=== PATIENT | female | born 1965 | race Caucasian/White ===

== ENCOUNTER 2019-07-09 07:56 | Inpatient (IN) ==
--- NOTE | 2019-06-12 16:11 | PAT Medication Instructions ---
Medication Instructions Date of Service June 12, 2019 Home Medications Medication Instructions Recorded metformin 500 mg tablet,extended 500 mg PO QPM #90 tab 01/14/19 release 24 hr celecoxib 200 mg capsule 200 mg PO QPM #90 cap 04/26/19 Align 4 mg PO DAILY cetirizine [Zyrtec] 10 mg PO QPM cranberry 400 mg PO DAILY escitalopram oxalate [Lexapro] 10 mg PO HS krill oil 1 cap PO DAILY multivitamin 1 tab PO DAILY triamterene-hydrochlorothiazid 1 tab PO QPM turmeric 1 cap PO Q2D betamethasone, augmented 0.05 % topical cream 1 appln TOPICAL UD PRN metformin 500 mg tablet,extended release 24 hr 500 mg PO QPM cholecalciferol (vitamin D3) 1,000 unit capsule 1,000 units PO DAILY coenzyme Q10 100 mg capsule 100 mg PO DAILY levothyroxine 100 mcg tablet 100 mcg PO QAM celecoxib 200 mg capsule 200 mg PO QPM pantoprazole [Protonix] 40 mg PO Q2D Continue as directed pantoprazole [Protonix] 40 mg PO Q2D STOP taking 2 weeks before surgery (or as soon as possible if surgery is within 2 weeks) cranberry 400 mg PO DAILY krill oil 1 cap PO DAILY turmeric 1 cap PO Q2D coenzyme Q10 100 mg capsule 100 mg PO DAILY STOP taking 24 hours before surgery betamethasone, augmented 0.05 % topical cream 1 appln TOPICAL UD PRN DO NOT take the morning of surgery Align 4 mg PO DAILY multivitamin 1 tab PO DAILY cholecalciferol (vitamin D3) 1,000 unit capsule 1,000 units PO DAILY Take morning of surgery With a small sip of water, OTHERWISE NOTHING TO EAT OR DRINK AFTER MIDNIGHT: levothyroxine 100 mcg tablet 100 mcg PO QAM Take evening before surgery cetirizine [Zyrtec] 10 mg PO QPM escitalopram oxalate [Lexapro] 10 mg PO HS triamterene-hydrochlorothiazid 1 tab PO QPM metformin 500 mg tablet,extended release 24 hr 500 mg PO QPM Other Notes If you have any questions please call us at [phone] or [phone] or [phone] or [phone]
--- NOTE | 2019-06-13 09:27 | Anesthesiology Consultation ---
Date of Service June 13, 2019 Assessment & Plan (1) Encounter for pre-operative examination: CHECK TEST AM DOS Chart Review Chart Review: Acceptable Risk for Surgery and Patient seen in Pre Admission Testing Teaching & Discussion Instructed NPO after midnight before surgery, except medications with 15 cc of water. Medication instructions provided according to the PAT guidelines. History Surgery Operation Date: 07/09/19 10:20 Proposed Procedures p Left Total Knee Arthroplasty - Babar Ulices Ibanez MD Height/Weight Height: 5 ft 4.5 in Weight: 118.2 kg Allergies Allergy/AdvReac Type Severity Reaction Status Date / Time cephalexin Allergy Unknown CHILLS/FEVE Verified 06/07/19 15:37 R/DIARRHEA shellfish derived Allergy Unknown HANDS SWELL Verified 06/07/19 15:38 sulfamethoxazole AdvReac Unknown Insomnia Verified 06/07/19 15:37 [From Bactrim] trimethoprim [From Bactrim] AdvReac Unknown Insomnia Verified 06/07/19 15:37 Medications Home Medications Medication Instructions Recorded Confirmed Last Taken Align 4 mg PO DAILY 07/26/18 06/07/19 08/07/18 cetirizine [Zyrtec] 10 mg PO QPM 07/26/18 06/07/19 08/07/18 cranberry 400 mg PO DAILY 07/26/18 06/07/19 1 Week Ago ~08/02/18 escitalopram oxalate [Lexapro] 10 mg PO HS 07/26/18 06/07/19 08/08/18 krill oil 1 cap PO DAILY 07/26/18 06/07/19 1 Week Ago ~08/02/18 multivitamin 1 tab PO DAILY 07/26/18 06/07/19 08/07/18 triamterene-hydrochlorothiazid 1 tab PO QPM 07/26/18 06/07/19 08/08/18 turmeric 1 cap PO Q2D 07/26/18 06/07/19 1 Week Ago ~08/02/18 betamethasone, augmented 0.05 % 1 appln TOPICAL UD PRN #1 gm 12/09/18 06/07/19 Unknown topical cream metformin 500 mg tablet,extended 500 mg PO QPM #90 tab 01/14/19 06/07/19 Unknown release 24 hr cholecalciferol (vitamin D3) 1,000 1,000 units PO DAILY cap 03/22/19 06/07/19 Unknown unit capsule coenzyme Q10 100 mg capsule 100 mg PO DAILY cap 03/22/19 06/07/19 Unknown levothyroxine 100 mcg tablet 100 mcg PO QAM 03/22/19 06/07/19 Unknown celecoxib 200 mg capsule 200 mg PO QPM #90 cap 04/26/19 06/07/19 Unknown pantoprazole [Protonix] 40 mg PO Q2D 06/07/19 06/07/19 Unknown Past Medical History Medical History Anxiety (Acute) BMI 40.0-44.9, adult (Acute) Dyshidrotic eczema (Acute) GERD (gastroesophageal reflux disease) (Acute) History of cellulitis R LEG - 1 YR AGO/RESOLVED/NO RE-OCCURANCE HTN (hypertension) (Acute) Hypothyroidism (Acute) IBS (irritable bowel syndrome) Osteoarthritis Pre-diabetes (Acute) Uterine fibroid Exercise / Class Metabolic Activity II 4-5 Yardwork/Stairs/Walk up hill (USing cane for knee pain, but denies CP or SOB with 1 FOS) Past Surgical History Surgical History History of ankle surgery LEFT ANKLE (HARDWARE INTACT) History of cholecystectomy History of colonoscopy History of tooth extraction Past Anesthesia History No Hx of Anesthesia Complications and No Family Hx of Anesthesia Complications History of PONV No Hx of PONV and No Hx of Motion Sickness Social History Smoking Status: Never smoker Do You Dip or Chew Tobacco: No Hx Alcohol Use: No Hx Substance Use: No substance use type: does not use Review of Systems Pt denies any recent chest pain, shortness of breath, palpitations, cough, fever or URI. Physical Exam Vital Signs BP: 123/80 P: 78bpm SPO2: 96% RA T: 97.9 F R: 16 Constitutional + obese ENMT Mouth: + dental restorations (two crowns on molars); no chipped teeth and no loose teeth Thyromental Distance: > or= 3.5 Finger Breadths (3.5) Mallampati Class: I Neck normal visual inspection; neck extension not limited Respiratory normal respiratory effort Auscultation: lungs clear to auscultation bilaterally Cardiovascular Rate/Rhythm: regular rate and regular rhythm Heart Sounds: no murmur Vessels: no carotid bruit Extremities: + edema (chronic, wearing compression stockings) Testing Laboratory Results 06/13/19 09:38 06/13/19 09:38 PT 10.0 Seconds (9.0-12.0) 06/13/19 09:38 INR 1.0 (0.9-1.1) 06/13/19 09:38 APTT 27.3 Seconds (21.0-31.0) 06/13/19 09:38 Hemoglobin A1c 6.2 % (4.5-5.6) H 06/13/19 09:38 Blood Type O Positive 06/13/19 09:38 Antibody Screen NEGATIVE 06/13/19 09:38 06/13/19 09:38 Urine Culture - Final Urine,Clean Catch More than three types of organisms present, all moderate counts mixed probable skin gogo. No further identifications or sensitivities to follow. Electrocardiogram Date: 06/13/19 Findings: + NSR @ (72bpm) *unconfirmed
[2019-06-13 10:51] LABS: Albumin Level 3.5 gm/dl (3.4-5.0); BUN Creatinine Ratio 16.8 (10-20); Bilirubin Direct 0.1 mg/dl (0-0.2); Calcium 9.8 mg/dl (8.5-10.1); Creatinine Clr Calc Pharmacy 114.7 ml/min; Est GFR (African American) 108.7; Est GFR (Non-African American) 93.8
[2019-06-13 10:53] LABS: Bilirubin,Total 0.3 mg/dl (0.2-1); Partial Thromboplastin Time 27.3 Seconds (21.0-31.0); Total Protein 7.2 gm/dl (6.4-8.2)
[2019-06-13 11:36] LABS: Basophils # (auto) 0.02 K/uL (0-0.2); Basophils % (auto) 0.3 %; Eosinophils # (auto) 0.22 K/uL (0-0.5); Eosinophils % (auto) 3.1 %; Hematocrit (blood only) 39.5 % (37-47); Hemoglobin 13.5 g/dL (12.0-16.0); Immature Granulocytes # (auto) 0.01 K/uL (0.00-0.02); Immature Granulocytes % (auto) 0.1 %; Lymphocytes # (auto) 2.22 K/uL (1.2-3.4); Mean Corpuscular Hemoglobin 29.3 pg (25-34); Mean Corpuscular Hgb Conc 34.2 g/dL (32-36); Mean Corpuscular Volume 85.7 fL (80-100); Mean Platelet Volume 11.6 fL (7.4-10.4); Monocytes # (auto) 0.56 K/uL (0.11-0.59); Monocytes % (auto) 7.8 %; Neutrophils # (auto) 4.12 K/uL (1.4-6.5); Neutrophils % (auto) 57.7 %; Platelet Count 260 K/uL (130-400); RDW Coefficient of Variation 13.7 % (11.5-14.5); Red Blood Count 4.61 M/uL (4.2-5.4); White Blood Count 7.15 K/uL (4.8-10.8)
[2019-06-13 12:33] LABS: Estimated Average Glucose 131 mg/dl; Hemoglobin A1C 6.2 % (4.5-5.6)
[~2019-07-09 07:56] MED LIST: BUPIVACAINE 0.5 % 5 MG/1 ML PF 10ML VIAL ONE; BUPIVACAINE/EPINEPHRINE 0.25% 1:200,000 30 ML VIAL ONE; CEFAZOLIN 2000MG 2,000 MG/15 ML SYR IV SCH; CeleBREX 200 MG CAP PO SCH; LR 500ML BOLUS, THEN 15ML/HR IV SCH; LR 60ML/HR IV SCH; ROPIVACAINE 0.5% HCL/PF 150 MG, BUPIVACAINE 0.5% MPF 30 ML, EPINEPHrine 0.15 MG, Ketoro... INFIL SCH; SCOPOLAMINE 1.5 MG TDSY TD SCH; TRANEXAMIC ACID 1,000 MG **IV Intra-op IV SCH; TRANEXAMIC ACID 1,000 MG **IV Pre-op IV SCH
[2019-07-09] MEDS ORDERED: LIDOCAINE HCL 2% 2 ML VIAL/AMP(20MG/ML) INFIL ONE (08:41)
[2019-07-09] MEDS ORDERED: ONDANSETRON INJ 2 MG/ML 2 ML VIAL ONE (08:41)
[2019-07-09] MEDS ORDERED: fentaNYL citrate 100 MCG/2 ML VIAL ONE ×2 (08:41→14:29)
[2019-07-09] MEDS ORDERED: PROPOFOL IV EMULSION 10 MG/ML 20 ML VIAL IV ONE ×9 (08:41→13:34)
[2019-07-09] MEDS ORDERED: MIDAZOLAM HCL 1 MG/ML 2ML VIAL ONE ×3 (08:42→12:08)
[2019-07-09] MEDS ORDERED: TRANEXAMIC ACID / 0.7% NACL 1000MG/100ML BAG IV ONE (09:04)
[2019-07-09] MEDS ORDERED: ORTHO JOINT ANESTHETIC ONE (10:36)
--- NOTE | 2019-07-09 10:42 | History & Physical Bridge Note ---
Date of Service July 09, 2019 History & Physical Bridge Note I have examined the patient, reviewed the History & Physical and in the interval since the performance of the History & Physical I have noted the following changes of clinical significance: no changes noted
[2019-07-09] MEDS ORDERED: KETAMINE HCL INJ 50 MG/ML 10 ML VIAL ONE (12:59)
--- NOTE | 2019-07-09 13:57 | Operative Report ---
Post Operative Report Pre & Post Diagnosis Operation Date: 07/09/19 10:20 Pre-Op Diagnosis: Left Knee Osteoarthritis Post-Op Diagnosis: Left Knee Osteoarthritis I identified the patient and participated in the time-out.: Yes Procedure Operation Date: 07/09/19 10:20 Actual Procedures p Left Total Knee Arthroplasty(Left) - Babar Ibanez MD Surgeon Babar Ibanez MD Hydroelectric Systems Technician Rj Donis PA-C (No fellow avail) Estimated Blood Loss 120 Findings See Below Examined Under Anesthesia: ROM -- There was 0 degrees to 95 degrees of flexion Ligamentous examination -- revealed stable Danie, posterior drawer, varus and valgus stress at 0 and 30 degrees. [place] Type IV changes of medial compartment and patella. Fluids 2500 cc Specimens Left knee contents Drains n/a Anesthesia Type MAC Spinal Regional Complications none Indications This is a 53-year-old female who has clinical and radiographic findings consistent with osteoarthritis of the a left knee. I recommended that a left total knee replacement be performed. The patient understands the risks of surgery, which include but not limited to: bleeding, infection, re-operation, damage to nerves and arteries, continued knee pain, knee stiffness, DVT, and . The patient understands all of these instructions and explanations, all of his questions have been satisfactorily addressed and the patient has elected to proceed. Informed consent was signed. Description of Procedure IMPLANTS: 1. Femur: Triathlon #3 left PS. 2. Tibia: Triathlon #2 [place]. 3. Insert: Triathlon #2 x 9 mm PS X3 poly. 4. Patella: Triathlon A29 x 9 mm X3 poly. 5. Simplex cement. Procedure: The patient was taken to the Operating Room and placed in the supine position after spinal and adductor canal nerve block was administered. My initials and a multidisciplinary time-out were used to identify the left leg as the correct operative limb. A tourniquet was placed high in the thigh. Prior to the incision, 2 grams of intravenous Ancef were given. The left leg was then prepped and draped in a standard sterile fashion. An Esmarch was used to exsanguinate the leg and the tourniquet was inflated to 250 mmHg. The planned mid-line 20 cm incision was created exposing the extensor mechanism. The medial parapatellar arthrotomy was made and the patella was everted. The patella was addressed first. It was prepared by reaming from 23 mm down to 14 mm. An A29 button was found to fit best. The peg holes were made in the standard fashion. The femur was addressed next and the guide pao was placed intramedullary. The initial cutting block was placed with 3 degrees of valgus and removing 8 mm for the anterior cut. The cut was made and the 4-in-1 cutting block for a size 3 femur was placed. These cuts and the cuts to place the box were made in the standard fashion. Our attention was then drawn to the tibia cut with the external cutting guide, taking 4 mm from the medial low side. There was sufficient extension and flexion gap to fit a 9 mm spacer. A #2 Tibial baseplate fit well. A trial with a 9 mm spacer showed excellent stability in both flexion and extension, with good ligament balance. Range of motion of 0-95 degrees. The tibial baseplate was pinned and the final preparation for the keel and stem was made. All the trial components were tested again, with good stability and thumbs free tracking of the patella. All components were removed. The tourniquet was deflated. Hemostasis was obtained. 90 ml of total knee cocktail were injected into the soft tissues and periosteum. A bone plug was placed in the femur and covered with bone wax. After a 15 minute break, the limb was exsanguinated again and the tourniquet was re-inflated. All surfaces were copiously irrigated prior to placement of the components. The femoral component and Tibial baseplate were placed with the first batch of cement and the 9 mm X3 poly was placed. During the second batch of cement the patellar button was placed using Simplex cement. Again with the range of motion and stability were unchanged. The extensor mechanism was closed with 1-0 and 0 Vicryl with the knee bent approximately 60 degrees in a standard fashion. The peritenon and deep fascia was closed with 2-0 Vicryl. The subcutaneous layer was closed with 3-0 Vicryl. The skin was closed with Zipline. The limb was cleaned and dried. 4x4 dressing was placed over top followed by ABDs, sterile Webril, and a foot to thigh Jaden bandage. The patient was then transferred to the Recovery Room in stable condition. The sponge and needle counts were correct. POST-OP INSTRUCTIONS: The patient will be WBAT. The patient will be admitted to the hospital. The patient will use the knee immobilizer when ambulating and standing until good quad control is achieved. Labs will be obtained during the stay. DVT prophylaxis will included aspirin for 6 weeks, TEDs, and mechanical foot pumps. The dressing will be changed prior to their discharge or postop day #2 and covered with a Silverlon dressing, whichever comes first. I attest to the content of the Intraoperative Record and any orders documented therein. Any exceptions are noted below.
--- NOTE | 2019-07-09 13:57 | Post Operative Brief Note ---
Immediate Post Op Note v1 Date of Surgery July 09, 2019 Pre & Post Diagnosis Operation Date: 07/09/19 10:20 Pre-Op Diagnosis: Left Knee Osteoarthritis Post-Op Diagnosis: Left Knee Osteoarthritis I identified the patient and participated in the time-out.: Yes Procedure Operation Date: 07/09/19 10:20 Actual Procedures p Left Total Knee Arthroplasty(Left) - Babar Ibanez MD Surgeon Babar Ibanez MD Wide Area Network Administrator Rj Donis PA-C (No fellow avail) Estimated Blood Loss 120 Findings Consistent with Post-Op Diagnosis Fluids 2500 cc Specimens Left knee contents Anesthesia Type MAC Spinal Regional Complications none
[2019-07-09] MEDS ORDERED: METOPROLOL TARTRATE 1 MG/ML VIAL IV ONE (14:00)
[2019-07-09] MEDS ORDERED: METOCLOPRAMIDE HCL INJ 5 MG/ML 2 ML VIAL IV PRN (14:14)
[2019-07-09] MEDS ORDERED: bisacodyL 10 MG SUPP PR PRN (14:14)
[2019-07-09] MEDS ORDERED: HYDROmorphone INJ 1 MG/ML SYRINGE IV PRN (14:14)
[2019-07-09] MEDS ORDERED: ALUMINUM/MAGNESIUM SUSP 30 ML UDC PO PRN (14:14)
[2019-07-09] MEDS ORDERED: NALOXONE HCL 0.4 MG/1 ML VIAL/CARP IV PRN (14:14)
[2019-07-09] MEDS ORDERED: DiphenhydrAMINE HCL 50 MG/ML VIAL IV PRN (14:14)
[2019-07-09] MEDS ORDERED: ONDANSETRON INJ 2 MG/ML 2 ML VIAL IV PRN ×2 (14:14→14:15)
[2019-07-09] MEDS ORDERED: BETAMETHASONE DIP AUG 0.05% OINT 15 GM TUBE EXT PRN (14:14)
[2019-07-09] MEDS ORDERED: MAGNESIUM HYDROXIDE SUSP 30 ML UDC PO PRN (14:14)
[2019-07-09] MEDS ORDERED: fentaNYL citrate 100 MCG/2 ML VIAL IV PRN (14:15)
[2019-07-09] MEDS ORDERED: ATROPINE SULFATE 0.1 MG/ML 10ML SYR IV PRN (14:15)
[2019-07-09] MEDS ORDERED: ePHEDrine sulfate 50 MG/ML AMP IV PRN (14:15)
[2019-07-09] MEDS ORDERED: SODIUM CHLORIDE 0.9% 1000ML 1,000 ML IV SCH (14:15)
--- NOTE | 2019-07-09 14:21 | Operative Report ---
Post Operative Report Pre & Post Diagnosis Operation Date: 07/09/19 10:20 Pre-Op Diagnosis: Left Knee Osteoarthritis Post-Op Diagnosis: Left Knee Osteoarthritis I identified the patient and participated in the time-out.: Yes Procedure Operation Date: 07/09/19 10:20 Actual Procedures p Left Total Knee Arthroplasty(Left) - Babar Ibanez MD Surgeon Babar Ibanez MD Call Worker Person Rj Donis PA-C (No fellow avail) Estimated Blood Loss 120 Findings Consistent with Post-Op Diagnosis Specimens bone and soft tissue Complications none Indications See Dr Ibanez operative report for full details. Description of Procedure See Dr Ibanez operative report for full details. I was assistant center manager during entire case to include prepping, draping, limb and instrument handling, wound closure, dressings. I attest to the content of the Intraoperative Record and any orders documented therein. Any exceptions are noted below.
--- NOTE | 2019-07-09 14:44 | XRay Report ---
XR knee LT 1 or 2V routine HISTORY: 53 years-old Female Surgical Post Op left knee total joint arthroplasty COMPARISON: Leg length study 06/13/2019 TECHNIQUE: 2 views of the left knee FINDINGS: Left knee total joint arthroplasty and patella resurfacing demonstrates satisfactory alignment. No ac [place] fracture or retained foreign body. Expected postsurgical soft tissue swelling and deep tissue air noted about the left knee. IMPRESSION: Satisfactory alignment of the left knee total joint arthroplasty. The above report was generated using voice recognition software. It may contain grammatical, syntax o r spelling errors. Electronically signed by: Mark Higgins M.D. 07/09/2019 2:43 PM
--- NOTE | 2019-07-09 14:46 | Anesthesiology Progress Note ---
Date of Service July 09, 2019 Anesthesia Post Procedure Vital Signs Vital Signs: Temp Pulse Pulse Resp BP BP Pulse Ox 07/09/19 14:40 93 H 12 128/69 99 07/09/19 14:30 90 12 127/72 98 07/09/19 14:20 92 H 14 127/75 95 07/09/19 14:10 95 H 15 131/65 96 07/09/19 14:04 37.4 C 99 H 15 106/61 96 07/09/19 08:35 37 C 79 18 127/73 96 Pain Intensity Left Knee: Pain Intensity: 4 Lower Back: Pain Intensity: 6 Transfer of Care Handoff Completed per policy Notes Mental Status: alert / awake / arousable and participated in evaluation Patient Amnestic to Procedure: Yes Nausea / Vomiting: adequately controlled Pain: adequately controlled Airway Patency, RR, SpO2: stable & adequate BP & HR: stable & adequate Hydration State: stable & adequate Anesthetic Complications: no major complications apparent and Pt Satisfied with anesthetic care
[2019-07-09] MEDS ORDERED: METFORMIN HCL ER 500 MG TABCR PO SCH (16:30)
[2019-07-09] MEDS: CHECK SCOPOLAMINE PATCH PLACEMENT SCH (16:38)
--- NOTE | 2019-07-09 16:51 | Hospitalist Consultation ---
Date of Consultation July 09, 2019 Assessment & Plan (1) Osteoarthritis: * POD #0 s/p LEFT total knee arthroplasty with Dr. Ibanez. EBL 120mL. Pre- op h/h 13.5/39.5 * PT/OT/pain management/DVT prophylaxis per primary team * Monitor CBC in AM (2) Prediabetes: * A1c improved from 6.3 to 6.2 on 06/13 * Hold metformin while inpatient * SSI while inpatient * Monitor (3) GERD (gastroesophageal reflux disease): * Stable * Continue protonix QOD (4) Hypothyroidism: * Stable. Most recent TSH 4.07 on 03/28/19 * Continue home levothyroxine 100mcg (5) Anxiety: * Stable * Continue home escitalopram (6) Hypertension: * Stable -- currently, BP 125/92 * Continue home triamterine/hctz 37.5/25mg (7) Dyshidrotic eczema: * Per patient, diagnosed last summer * No current s/sx * Could order betamethasone topical if develops symptoms * Patient also with history of seasonal allergies -- will continue daily zyrtec (8) DVT prophylaxis: * Per primary * ASA 81mg BID Thank you for allowing the hospitalist team to participate in the care of Mrs. Maldonado. Medicine to follow along. History of Present Illness Reason for Consultation: Medical Management Requesting Physician: Dr Ibanez Attending Physician: Babar Ibanez MD History of Present Illness 53 year old female with PMH significant for HTN, Pre-diabetes, Hypothyroidism, GERD, Anxiety, IBS, dyshidrotic eczema and seasonal allergies presented for LEFT total knee arthroplasty with Dr. Ibanez. Patient states she does not have any numbness or tingling since the procedure. She was up in bed conversing with almost immediately post-operatively. She states she does not have any pain at this time. She initially was on oxygen but was comfortable on room air during my examination. No complaints at this time. She did state that her A1c did recently drop from 6.3 to 6.2 pre-op with the addition of metformin 500mg by her PCP, Dr. Ovalle. She denies any fever, chills, shortness of breath, chest pain, nausea, vomiting, lightheadedness, dizziness, numbness or tingling. Allergies Allergy/AdvReac Type Severity Reaction Status Date / Time cephalexin Allergy Unknown CHILLS/FEVE Verified 07/09/19 08:17 R/DIARRHEA shellfish derived Allergy Unknown HANDS SWELL Verified 07/09/19 08:17 sulfamethoxazole AdvReac Mild Insomnia Verified 07/09/19 08:17 [From Bactrim] trimethoprim [From Bactrim] AdvReac Mild Insomnia Verified 07/09/19 08:17 Home Medications Home Medications Medication Instructions Recorded Confirmed Type Align 4 mg PO DAILY 07/26/18 07/09/19 History cetirizine [Zyrtec] 10 mg PO QPM 07/26/18 07/09/19 History cranberry 400 mg PO DAILY 07/26/18 07/09/19 History escitalopram oxalate [Lexapro] 10 mg PO HS 07/26/18 07/09/19 History krill oil 1 cap PO DAILY 07/26/18 07/09/19 History multivitamin 1 tab PO DAILY 07/26/18 07/09/19 History turmeric 1 cap PO Q2D 07/26/18 07/09/19 History betamethasone, augmented 0.05 % 1 appln TOPICAL UD PRN #1 gm 12/09/18 07/09/19 History topical cream metformin 500 mg tablet,extended 500 mg PO QPM #90 tab 01/14/19 07/09/19 Rx release 24 hr cholecalciferol (vitamin D3) 25 1,000 units PO DAILY cap 03/22/19 07/09/19 History mcg (1,000 unit) capsule coenzyme Q10 100 mg capsule 100 mg PO DAILY cap 03/22/19 07/09/19 History levothyroxine 100 mcg tablet 100 mcg PO QAM 03/22/19 07/09/19 History celecoxib 200 mg capsule 200 mg PO QPM #90 cap 04/26/19 07/09/19 Rx pantoprazole [Protonix] 40 mg PO Q2D 06/07/19 07/09/19 History triamterene 37.5 1 tab PO QPM #90 tab 06/25/19 07/09/19 Rx mg-hydrochlorothiazide 25 mg tablet Patient History Medical History Anxiety (Acute) BMI 40.0-44.9, adult (Acute) Dyshidrotic eczema (Acute) GERD (gastroesophageal reflux disease) (Acute) History of cellulitis R LEG - 1 YR AGO/RESOLVED/NO RE-OCCURANCE HTN (hypertension) (Acute) Hypothyroidism (Acute) IBS (irritable bowel syndrome) Osteoarthritis Pre-diabetes (Acute) Uterine fibroid Surgical History History of ankle surgery LEFT ANKLE (HARDWARE INTACT) History of cholecystectomy History of colonoscopy History of tooth extraction Family History Father Congestive heart failure Generalized anxiety disorder Mother Osteoarthritis Sister Neurofibromatosis type II Generalized anxiety disorder Brother Obsessive compulsive disorder Anxiety disorder, unspecified Social History Preferred Language: Hebrew Communication Ability: Effective Critical Care Registered Nurse Required: No Beliefs That Will Affect Care: None marital status: Current Living Situation: Family Other Information That Helps Us Care for You: No Feels Safe at Home: Yes Smoking Status: Never smoker Do You Dip or Chew Tobacco: No ; Second Hand Exposure: No ; Hx Alcohol Use: No Hx Substance Use: No Physical Activity Frequency: Daily Review of Systems Constitutional: no fever and no chills Eyes: no diplopia and no problem reported Ear, Nose, Mouth, Throat: no sore throat and no dysphagia Respiratory: no cough, no chest congestion and no dyspnea Cardiovascular: no chest pain, no palpitations and no edema Gastrointestinal: no abdominal pain, no nausea, no vomiting, no constipation and no diarrhea/loose stools Genitourinary: no dysuria and no hematuria Musculoskeletal: no joint pain and no myalgia Integumentary: no rash and no lesions Neurologic: no loss of sensation, no numbness and no paresthesia Psychiatric: + anxiety; no depression Endocrine: no cold intolerance and no heat intolerance Hematologic / Lymphatic: no easy bruising and no coagulopathy Allergy / Immunological: seasonal allergies, eczema Physical Exam Constitutional: WD/WN, vitals as above + obese; no acute distress Eyes: + anicteric sclerae and PERRL ENMT: external ear and nose normal, oropharynx normal Neck: trachea midline, no thyromegaly Respiratory: normal respiratory effort; no respiratory distress and no labored breathing Auscultation: lungs clear to auscultation bilaterally and + crackles (faint crackles right lung base) Cardiovascular: RRR, no murmur, no edema Gastrointestinal (Abdomen): normal bowel sounds, soft, nontender, no hepatosplenomegaly Musculoskeletal: no cyanosis or clubbing, extremities motor strength 5/5 left knee dressing c/d/i NVI Skin: no rashes, warm and dry Neurologic: PERRL, EOMI, accommodation nl, no face palsy, no dysarthria Psychiatric: A+Ox3, euthymic affect Lymphatic: no cervical or axillary lymphadenopathy Results & Data Vital Signs (Past 12 Hours) Vital Signs Temp Pulse Pulse Resp BP BP Pulse Ox 07/09/19 16:38 36.7 C 86 16 125/92 96 07/09/19 16:10 36.5 C 82 17 122/74 100 07/09/19 15:35 36.6 C 86 16 100 07/09/19 15:15 87 15 114/72 98 07/09/19 15:00 89 18 121/72 98 07/09/19 14:50 36.4 C L 91 H 16 127/77 97 07/09/19 14:40 93 H 12 128/69 99 07/09/19 14:30 90 12 127/72 98 07/09/19 14:20 92 H 14 127/75 95 07/09/19 14:10 95 H 15 131/65 96 07/09/19 14:04 37.4 C 99 H 15 106/61 96 07/09/19 08:35 37 C 79 18 127/73 96 Laboratory Results 07/09/19 Range/Units 08:26 POC Ur Test NEG (NEG) PG Care Time/CCT Total # of Minutes Spent Total Time Spent with Patient: Total time spent is greater than 50% in coordination of care (as documented) at patient's floor/unit and/or counseling patient:
[2019-07-09] MEDS ORDERED: CARBOHYDRATES FOR HYPOGLYCEMIA PO PRN (17:05)
[2019-07-09] MEDS ORDERED: GLUCOSE 40% GEL 15 GM TUBE PO PRN (17:05)
[2019-07-09] MEDS ORDERED: GLUCAGON FOR INJ 1 MG VIAL SQ PRN (17:05)
[2019-07-09] MEDS ORDERED: DEXTROSE 50% 50 ML SYRINGE IV PRN (17:05)
[2019-07-09] MEDS ORDERED: GLUCOSE 10 TABS/TUBE PO PRN (17:05)
--- NOTE | 2019-07-09 17:36 | Orthopedic Progress Note ---
Date of Service July 09, 2019 Assessment & Plan (1) Osteoarthritis: POD #0 s/p Left TKA due to OA, doing as well as expected. Continue pain control. Resume diet. WBAT with walker, use immobilizer for ambulation for 48 hours or demonstrates good quad control. PT/OT DVT Prophylaxis: TEDs (Knee high), Foot pumps, ASA 325 mg BID for 6 weeks. Change dressing to Silverlon Prior to discharge or POD #2 whichever comes first. Appreciate medicine input for medical management. D/C Planning. Present on Admission?: Yes Subjective Feeling fairly well. Review of Systems Review of Systems: All systems reviewed & are unremarkable except as noted in HPI & below Physical Exam Physical Exam: LLE: Dressing clean, dry, intact. Wiggling toes and ankle up and down. Sensation to light touch intact. BCR < 2 sec. Results & Data Vital Signs (Past 12 Hours) Vital Signs Temp Pulse Pulse Resp BP BP Pulse Ox 07/09/19 16:38 36.7 C 86 16 125/92 96 07/09/19 16:10 36.5 C 82 17 122/74 100 07/09/19 15:35 36.6 C 86 16 100 07/09/19 15:15 87 15 114/72 98 07/09/19 15:00 89 18 121/72 98 07/09/19 14:50 36.4 C L 91 H 16 127/77 97 07/09/19 14:40 93 H 12 128/69 99 07/09/19 14:30 90 12 127/72 98 07/09/19 14:20 92 H 14 127/75 95 07/09/19 14:10 95 H 15 131/65 96 07/09/19 14:04 37.4 C 99 H 15 106/61 96 07/09/19 08:35 37 C 79 18 127/73 96 Diagnostic Findings AP & 2 Laterals left knee show components to be cemented in good position.
[2019-07-09] MEDS: ASCORBIC ACID 500 MG TAB PO SCH (17:37)
[2019-07-09] MEDS: FERROUS GLUCONATE 324 MG TAB PO SCH (17:37)
[2019-07-09] MEDS: OXYCODONE HCL IR 5 MG TAB (IMMEDIATE RELEASE) PO PRN (19:16)
[2019-07-09] MEDS: CEFAZOLIN 2000MG 2,000 MG/15 ML SYR IV SCH (19:17)
[2019-07-09] MEDS: ASPIRIN 81 MG ECTAB PO SCH (20:33)
[2019-07-09] MEDS: DOCUSATE SODIUM 100 MG CAP PO SCH (20:33)
[2019-07-09] MEDS ORDERED: CETIRIZINE HCL 10 MG TABLET PO SCH (21:00)
[2019-07-09] MEDS ORDERED: SENNA 8.6 MG TAB PO SCH (21:00)
[2019-07-09] MEDS ORDERED: CeleBREX 200 MG CAP PO SCH (21:00)
[2019-07-09] MEDS ORDERED: ESCITALOPRAM OXALATE 10 MG TAB PO SCH (21:00)
[2019-07-09] MEDS ORDERED: TRIAMTERENE/HCTZ 37.5/25MG TAB PO SCH (21:00)
[2019-07-09] MEDS: INSULIN ASPART 100 UNITS/ML 3 ML PEN SC SCH (21:01)
[2019-07-09] MEDS: ACETAMINOPHEN 500 MG TAB PO SCH (21:16)
[2019-07-10] MEDS: CHECK SCOPOLAMINE PATCH PLACEMENT SCH (00:08)
[2019-07-10] MEDS: OXYCODONE HCL IR 5 MG TAB (IMMEDIATE RELEASE) PO PRN ×3 (00:09→13:00)
[2019-07-10] MEDS: CEFAZOLIN 2000MG 2,000 MG/15 ML SYR IV SCH (03:50)
[2019-07-10] MEDS: ACETAMINOPHEN 500 MG TAB PO SCH ×2 (06:00→13:33)
[2019-07-10 06:30] LABS: Hematocrit (blood only) 38.9 % (37-47); Hemoglobin 12.6 g/dL (12.0-16.0); Mean Corpuscular Hemoglobin 28.6 pg (25-34); Mean Corpuscular Hgb Conc 32.4 g/dL (32-36); Mean Corpuscular Volume 88.4 fL (80-100); Mean Platelet Volume 11.3 fL (7.4-10.4); Platelet Count 297 K/uL (130-400); RDW Coefficient of Variation 13.6 % (11.5-14.5); RDW Standard Deviation 44.3 fL (36.4-46.3); White Blood Count 17.22 K/uL (4.8-10.8)
[2019-07-10] MEDS ORDERED: LEVOTHYROXINE SODIUM 100 MCG TABLET PO SCH (06:30)
[2019-07-10 07:03] LABS: BUN Creatinine Ratio 10.2 (10-20); Calcium 8.5 mg/dl (8.5-10.1); Creatinine Clr Calc Pharmacy 86.6 ml/min; Est GFR (African American) 75.5; Est GFR (Non-African American) 65.2; Potassium 3.6 mmol/L (3.5-5.1)
[2019-07-10] MEDS: INSULIN ASPART 100 UNITS/ML 3 ML PEN SC SCH ×2 (08:09→12:38)
[2019-07-10] MEDS: ASCORBIC ACID 500 MG TAB PO SCH (08:29)
[2019-07-10] MEDS: FERROUS GLUCONATE 324 MG TAB PO SCH (08:29)
[2019-07-10] MEDS: DOCUSATE SODIUM 100 MG CAP PO SCH (08:29)
[2019-07-10] MEDS: ASPIRIN 81 MG ECTAB PO SCH (08:29)
[2019-07-10] MEDS ORDERED: OMEGA-3 (PURIFIED FISH OIL) 1 GM CAP PO SCH (09:00)
[2019-07-10] MEDS ORDERED: PANTOprazole 40 MG TAB PO SCH (09:00)
[2019-07-10] MEDS ORDERED: NON-FORMULARY MEDICATION (Coenzyme Q10 100 MG) PO SCH (09:00)
[2019-07-10] MEDS ORDERED: CHOLECALCIFEROL 1,000 UNITS TAB PO SCH (09:00)
[2019-07-10] MEDS ORDERED: NON-FORMULARY MEDICATION (Cranberry 400 MG) PO SCH (09:00)
[2019-07-10] MEDS ORDERED: MULTIVITAMIN TAB PO SCH ×2 (09:00)
--- NOTE | 2019-07-10 09:05 | Orthopedic Progress Note ---
Date of Service July 10, 2019 Assessment & Plan (1) Osteoarthritis: POD #1 s/p Left TKA due to OA, doing as well as expected. Continue pain control. Resume diet. WBAT with walker, use immobilizer for ambulation for 48 hours or demonstrates good quad control. PT/OT DVT Prophylaxis: TEDs (Knee high), Foot pumps, ASA 325 mg BID for 6 weeks. Change dressing to Silverlon Prior to discharge or POD #2 whichever comes first. Appreciate medicine input for medical management. D/C Planning. Will re-eval in pm to determine appropriateness for d/c. Subjective Feeling well. Pain is tolerable. Review of Systems Review of Systems: All systems reviewed & are unremarkable except as noted in HPI & below Physical Exam Physical Exam: LLE: Dressing clean, dry, intact. Neurovascularly intact. calf soft and non-tender. Able to preform staright leg raise without immobilizer. Results & Data Vital Signs (Past 12 Hours) Vital Signs Temp Pulse Resp BP Pulse Ox 07/10/19 07:40 36.8 C 67 16 106/63 97 07/10/19 03:17 36.9 C 73 16 100/63 97 07/09/19 23:29 36.8 C 81 16 109/70 95 Laboratory Results 07/10/1907/10/07/10/19 Range/Units 07:58 06:12 06:12 WBC 17.22 H (4.8-10.8) K/uL RBC 4.40 (4.2-5.4) M/uL Hgb 12.6 (12.0-16.0) g/dL Hct 38.9 (37-47) % MCV 88.4 (80-100) fL MCH 28.6 (25-34) pg MCHC 32.4 (32-36) g/dL RDW Std Deviation 44.3 (36.4-46.3) fL RDW Coeff of Latha 13.6 (11.5-14.5) % Plt Count 297 (130-400) K/uL MPV 11.3 H (7.4-10.4) fL Sodium 137 (136-145) mmol/L Potassium 3.6 (3.5-5.1) mmol/L Chloride 102 (98-107) mmol/L Carbon Dioxide 29 (21-32) mmol/L Anion Gap 6.0 (3-11) BUN 10 (7-18) mg/dl Creatinine 1.00 (0.6-1.2) mg/dl Est Cr Clr Drug Dosing 86.6 ml/min Est GFR ( Amer) 75.5 Est GFR (Non-Af Amer) 65.2 BUN/Creatinine Ratio 10.2 (10-20) Glucose 122 H (70-99) mg/dl POC Glucose 120 H (70-99) Calcium 8.5 (8.5-10.1) mg/dl POC Ur Test (NEG) 07/09/19 07/09/19 07/09/19 Range/Units 20:49 17:13 08:26 WBC (4.8-10.8) K/uL RBC (4.2-5.4) M/uL Hgb (12.0-16.0) g/dL Hct (37-47) % MCV (80-100) fL MCH (25-34) pg MCHC (32-36) g/dL RDW Std Deviation (36.4-46.3) fL RDW Coeff of Latha (11.5-14.5) % Plt Count (130-400) K/uL MPV (7.4-10.4) fL Sodium (136-145) mmol/L Potassium (3.5-5.1) mmol/L Chloride (98-107) mmol/L Carbon Dioxide (21-32) mmol/L Anion Gap (3-11) BUN (7-18) mg/dl Creatinine (0.6-1.2) mg/dl Est Cr Clr Drug Dosing ml/min Est GFR ( Amer) Est GFR (Non-Af Amer) BUN/Creatinine Ratio (10-20) Glucose (70-99) mg/dl POC Glucose 124 H 134 H (70-99) Calcium (8.5-10.1) mg/dl POC Ur Test NEG (NEG)
--- NOTE | 2019-07-10 13:10 | Hospitalist Progress Note ---
Date of Service July 10, 2019 Assessment & Plan (1) Osteoarthritis: * POD #1 s/p LEFT total knee arthroplasty with Dr. Ibanez. EBL 120mL. Pre- op h/h 13.5/39.5 * PT/OT/pain management/DVT prophylaxis per primary team * H/H declined to 12.6/38.9 today, but stable -- secondary to acute blood lo ss/fluids post-operatively * Discharge per primary team (2) Prediabetes: * A1c improved from 6.3 to 6.2 on 06/13 * Hold metformin while inpatient -- resume upon discharge * SSI while inpatient * Sugars have been 116-134 over the past twenty four hours (3) GERD (gastroesophageal reflux disease): * Stable * Continue protonix QOD (4) Hypothyroidism: * Stable. Most recent TSH 4.07 on 03/28/19 * Continue home levothyroxine 100mcg (5) Anxiety: * Stable * Continue home escitalopram (6) Hypertension: * Stable -- currently 106/63 -- home triamterine/hctz 37.5/25mg was continued post-operatively * Patient asymptomatic at this time. * Monitor for s/sx (7) Dyshidrotic eczema: * Per patient, diagnosed last summer * No current s/sx * Could order betamethasone topical if develops symptoms * Patient also with history of seasonal allergies -- will continue daily zyrtec (8) DVT prophylaxis: * Per primary * ASA 81mg BID Thank you for allowing the hospitalist team to participate in the care of Mrs. Maldonado. If patient continues to be asymptomatic/BP stable, possible discharge to rehab this evening per primary team after re-evaluation and bed available. Medicine will sign off. Supervising Physician Co-Signing Physician Notes PA Supervision Note: I did not personally see or examine the patient today, but I verified all dunn points of SHABBIR [place]'s assessment and plan with the following exceptions/additions: None Subjective Patient evaluated this morning, up to chair. Patient states she does have some pain today, rated 4/10, but it has been controlled with pain medications. She states she was able to ambulate to the bathroom without too much difficulty. She states she has not moved her bowels, but did have two movements prior to surgery. Good appetite. Tolerating diet without difficulty. Plans for inpatient rehab for two weeks prior to returning home, as her house has multiple steps and she believes it may be difficult without therapy. She states she was not up with therapy yet but plans on having it this afternoon. Denies fever, chills, chest pain, shortness of breath, sputum production, abdominal pain, n/v/d, dysuria, headache, diplopia, or lightheadedness with ambulation. Review of Systems Review of Systems: All systems reviewed & are unremarkable except as noted in HPI & below Constitutional: no fever and no chills Ear, Nose, Mouth, Throat: no sore throat and no dysphagia Respiratory: no cough and no dyspnea Cardiovascular: no chest pain and no palpitations Gastrointestinal: no abdominal pain, no nausea and no vomiting Genitourinary: no dysuria and no difficulty urinating Musculoskeletal: left knee discomfort Integumentary: no rash and no lesions Physical Exam Constitutional: WD/WN, vitals as above + obese; no acute distress Eyes: + anicteric sclerae and PERRL Neck: trachea midline, no thyromegaly Respiratory: no respiratory distress and no labored breathing Auscultation: lungs clear to auscultation bilaterally Cardiovascular: RRR, no murmur, no edema dressing to LEFT knee c/d/i 2+ pulses bilateral dp, pt NVI Gastrointestinal (Abdomen): normal bowel sounds, soft, nontender, no hepatosplenomegaly Musculoskeletal: no cyanosis or clubbing, extremities motor strength 5/5 Skin: no rashes, warm and dry Neurologic: PERRL, EOMI, accommodation nl, no face palsy, no dysarthria Psychiatric: A+Ox3, euthymic affect Lymphatic: no cervical or axillary lymphadenopathy Results & Data Vital Signs (Past 12 Hours) Vital Signs Temp Pulse Resp BP Pulse Ox 07/10/19 07:40 36.8 C 67 16 106/63 97 07/10/19 03:17 36.9 C 73 16 100/63 97 Laboratory Results 07/10/19 07/10/19 07/10/19 Range/Units 11:44 07:58 06:12 WBC (4.8-10.8) K/uL RBC (4.2-5.4) M/uL Hgb (12.0-16.0) g/dL Hct (37-47) % MCV (80-100) fL MCH (25-34) pg MCHC (32-36) g/dL RDW Std Deviation (36.4-46.3) fL RDW Coeff of Latha (11.5-14.5) % Plt Count (130-400) K/uL MPV (7.4-10.4) fL Sodium 137 (136-145) mmol/L Potassium 3.6 (3.5-5.1) mmol/L Chloride 102 (98-107) mmol/L Carbon Dioxide 29 (21-32) mmol/L Anion Gap 6.0 (3-11) BUN 10 (7-18) mg/dl Creatinine 1.00 (0.6-1.2) mg/dl Est Cr Clr Drug Dosing 86.6 ml/min Est GFR ( Amer) 75.5 Est GFR (Non-Af Amer) 65.2 BUN/Creatinine Ratio 10.2 (10-20) Glucose 122 H (70-99) mg/dl POC Glucose 116 H 120 H (70-99) Calcium 8.5 (8.5-10.1) mg/dl 07/10/19 07/09/19 07/09/19 Range/Units 06:12 20:49 17:13 WBC 17.22 H (4.8-10.8) K/uL RBC 4.40 (4.2-5.4) M/uL Hgb 12.6 (12.0-16.0) g/dL Hct 38.9 (37-47) % MCV 88.4 (80-100) fL MCH 28.6 (25-34) pg MCHC 32.4 (32-36) g/dL RDW Std Deviation 44.3 (36.4-46.3) fL RDW Coeff of Latha 13.6 (11.5-14.5) % Plt Count 297 (130-400) K/uL MPV 11.3 H (7.4-10.4) fL Sodium (136-145) mmol/L Potassium (3.5-5.1) mmol/L Chloride (98-107) mmol/L Carbon Dioxide (21-32) mmol/L Anion Gap (3-11) BUN (7-18) mg/dl Creatinine (0.6-1.2) mg/dl Est Cr Clr Drug Dosing ml/min Est GFR ( Amer) Est GFR (Non-Af Amer) BUN/Creatinine Ratio (10-20) Glucose (70-99) mg/dl POC Glucose 124 H 134 H (70-99) Calcium (8.5-10.1) mg/dl PG Care Time/CCT Total # of Minutes Spent Total Time Spent with Patient: Total time spent is greater than 50% in coordination of care (as documented) at patient's floor/unit and/or counseling patient:
[2019-07-10] MEDS ORDERED: LACTOBACILLUS ACIDOPHILUS (FLORANEX) TAB PO SCH (17:00)
--- NOTE | 2019-07-11 20:16 | Discharge Summary ---
ADMITTING DIAGNOSIS: Left knee osteoarthritis. DISCHARGE DIAGNOSIS: Left knee osteoarthritis, status post left total knee arthroplasty. CONDITION ON DISCHARGE: Stable. PROCEDURES PERFORMED: Left knee arthroplasty by Dr. Ibanez on 07/09/2019. CONSULTATIONS: Medicine for medical management. HOSPITAL COURSE: A 53-year-old female who was admitted to [facility] status post left total knee replacement on 07/09/2019. Anesthesia included a spinal as well as a femoral nerve block. She received Ancef perioperatively and postoperatively for 24 hours. The patient tolerated the surgery without complication. She worked with physical therapy on postop day 0, and on postop day 1, the patient did well on oral pain medication, tolerated a p.o. diet, was able to void. No issues with her knee incision. DVT prophylaxis while in the hospital included aspirin 81 mg twice a day, foot pumps and GEOVANNY stockings. She was consulted by hospitalist as well who followed her during her hospital stay. The patient was deemed appropriate to be discharged on postop day #1 after morning physical therapy and lunch. She will go home with her and her 2 kids with home health physical therapy. DISCHARGE INSTRUCTIONS AND MEDICATIONS: Prior to leaving the hospital, the patient's dressings were changed to a Silverlon dressing, which is waterproof, which will remain on for a total of 14 days until her followup appointment. For DVT prophylaxis, she will continue with aspirin 81 mg twice a day for a total of 6 weeks. She will continue with knee-high GEOVANNY hose until she follows up in 2 weeks. She has been using the knee immobilizer to her left knee with ambulation. She is aware she should use this for another 24 hours and then she can stop the immobilizer. Weightbearing is as tolerated with a walker. She will start with home health physical therapy, which was set up by the school social worker. Regarding medication, she was prescribed oxycodone for severe pain, Tylenol for [id number] pain, vitamin C as well as iron and as noted above with the aspirin. These medications were e-prescribed to her pharmacy. The patient was advised to call the office or return to the Emergency Room with any concerns including redness, swelling, drainage, fever, uncontrolled pain. She is scheduled to follow up with our office on 07/25/2019 at 11:15 a.m. She will otherwise call in the meantime if she has any further problems, questions, or concerns.
== END 2019-07-10 15:45 | disposition home health service (06) | DRG 470 ==
LOC: ASU 07:56 → 3E 14:14

== ENCOUNTER 2022-03-29 05:14 | Observation (INO) ==
--- NOTE | 2022-02-08 11:02 | PAT Medication Instructions ---
Medication Instructions Date of Service February 08, 2022 Home Medications Medication Instructions Recorded levothyroxine 100 mcg tablet 100 mcg PO QAM #90 tabs 01/29/21 metformin 500 mg tablet,extended 1,000 mg PO QPM #180 tabs 01/29/21 release 24 hr pantoprazole 40 mg tablet,delayed See Rx Instructions .Route 03/24/21 release .COMPLEX #90 tabs celecoxib 200 mg capsule See Rx Instructions .Route 04/27/21 .COMPLEX #90 caps escitalopram oxalate 10 mg tablet See Rx Instructions .Route 07/28/21 .COMPLEX #90 tabs triamterene 37.5 1 tab PO QPM #90 tabs 07/28/21 mg-hydrochlorothiazide 25 mg tablet metaxalone 800 mg tablet (Skelaxin) 400 - 800 mg PO TID PRN muscle 12/17/21 pain #60 tabs albuterol sulfate 90 mcg/actuation 2 puff inhalation Q6H PRN 01/11/22 aerosol inhaler shortness of breath or wheezing #18 grams Bifidobacterium infantis 4 mg capsule (Align) 4 mg PO QPM cetirizine 10 mg tablet (Zyrtec) 10 mg PO QPM levothyroxine 100 mcg tablet 100 mcg PO QAM metformin 500 mg tablet,extended release 24 hr 1,000 mg PO QPM pantoprazole 40 mg tablet,delayed release See Rx Instructions .Route .COMPLEX celecoxib 200 mg capsule See Rx Instructions .Route .COMPLEX escitalopram oxalate 10 mg tablet See Rx Instructions .Route .COMPLEX triamterene 37.5 mg-hydrochlorothiazide 25 mg tablet 1 tab PO QPM metaxalone 800 mg tablet (Skelaxin) 400 - 800 mg PO TID PRN albuterol sulfate 90 mcg/actuation aerosol inhaler 2 puff inhalation Q6H PRN acetaminophen 500 mg tablet 1,000 mg PO Q8 PRN multivitamin 1 tab PO QPM Continue as directed pantoprazole 40 mg tablet,delayed release See Rx Instructions .Route .COMPLEX escitalopram oxalate 10 mg tablet See Rx Instructions .Route .COMPLEX ASK your surgeon for instructions celecoxib 200 mg capsule See Rx Instructions .Route .COMPLEX DO NOT take the morning of surgery metaxalone 800 mg tablet (Skelaxin) 400 - 800 mg PO TID PRN Take morning of surgery With a small sip of water, OTHERWISE NOTHING TO EAT OR DRINK AFTER MIDNIGHT: levothyroxine 100 mcg tablet 100 mcg PO QAM albuterol sulfate 90 mcg/actuation aerosol inhaler 2 puff inhalation Q6H PRN(use if needed; please bring with you to hospital day of surgery if possible) acetaminophen 500 mg tablet 1,000 mg PO Q8 PRN(if needed) Take evening before surgery Bifidobacterium infantis 4 mg capsule (Align) 4 mg PO QPM cetirizine 10 mg tablet (Zyrtec) 10 mg PO QPM metformin 500 mg tablet,extended release 24 hr 1,000 mg PO QPM triamterene 37.5 mg-hydrochlorothiazide 25 mg tablet 1 tab PO QPM metaxalone 800 mg tablet (Skelaxin) 400 - 800 mg PO TID PRN(if needed) albuterol sulfate 90 mcg/actuation aerosol inhaler 2 puff inhalation Q6H PRN(if needed) acetaminophen 500 mg tablet 1,000 mg PO Q8 PRN(if needed) multivitamin 1 tab PO QPM Insulin Dependent Diabetic Patients : Other Notes If you have any questions please call us at [phone] or [phone] or [phone] or [phone]
--- NOTE | 2022-02-16 15:29 | Anesthesiology Consultation ---
Date of Service February 16, 2022 Assessment & Plan (1) Encounter for pre-operative examination: - check BSG and urine test STAT am DOS. - PCP 02/16/22 [place]: "...Using the revised cardiac index, she is at low risk for adverse outcomes with non-cardiac surgery...pre admission testing later today with plans to do labs and EKG...acceptable risk for surgery pending results..." - COVID screening: Per assessment on 02/16/2022: Travel screen returned from [facility] [place], no known COVID-19 positive contacts or current COVID-19 related symptoms in past 2 weeks. Pt vaccinated. Surgeon arranging preop COVID testing, scheduled 03/04/2022. Awaiting results. Chart Review Chart Review: Acceptable Risk for Surgery and Patient seen in Pre Admission Testing Teaching & Discussion Pre-Anesthesia Teaching/Discussion Notes: Instructed NPO after midnight before surgery, except medications with 15 cc of water. Medication instructions provided according to the PAT guidelines. History Surgery Operation Date: 03/08/22 07:00 Proposed Procedures p Right Total Knee Arthroplasty - Babar Ulices Ibanez MD Height/Weight Height: 5 ft 4 in Weight: 113.5 kg Allergies Allergy/AdvReac Type Severity Reaction Status Date / Time cephalexin Allergy Unknown CHILLS/FEVE Verified 02/16/22 09:39 R/DIARRHEA shellfish derived Allergy Unknown HANDS SWELL Verified 02/16/22 09:39 sulfamethoxazole AdvReac Mild Insomnia Verified 02/16/22 09:39 [From Bactrim] trimethoprim [From Bactrim] AdvReac Mild Insomnia Verified 02/16/22 09:39 Medications Home Medications Medication Instructions Recorded Confirmed Last Taken Bifidobacterium infantis 4 mg 4 mg PO QPM 07/26/18 02/16/22 06/25/19 08:00 capsule (Align) cetirizine 10 mg tablet (Zyrtec) 10 mg PO QPM 07/26/18 02/16/22 07/08/19 21:00 levothyroxine 100 mcg tablet 100 mcg PO QAM #90 tabs 01/29/21 02/16/22 Unknown celecoxib 200 mg capsule See Rx Instructions .Route 04/27/21 02/16/22 Unknown .COMPLEX #90 caps escitalopram oxalate 10 mg tablet See Rx Instructions .Route 07/28/21 02/02/22 Unknown .COMPLEX #90 tabs triamterene 37.5 1 tab PO QPM #90 tabs 07/28/21 02/16/22 Unknown mg-hydrochlorothiazide 25 mg tablet metaxalone 800 mg tablet (Skelaxin) 400 - 800 mg PO TID PRN muscle 12/17/21 Unknown pain #60 tabs albuterol sulfate 90 mcg/actuation 2 puff inhalation Q6H PRN 01/11/22 02/16/22 Unknown aerosol inhaler shortness of breath or wheezing #18 grams acetaminophen 500 mg tablet 1,000 mg PO Q8 PRN Pain 02/02/22 02/16/22 Unknown multivitamin 1 tab PO QPM 02/02/22 02/16/22 Unknown metformin 500 mg tablet,extended 1,000 mg PO QPM #180 tabs 02/14/22 02/16/22 Unknown release 24 hr pantoprazole 40 mg tablet,delayed See Rx Instructions .Route 02/14/22 02/16/22 Unknown release .COMPLEX #90 tabs Past Medical History Medical History (Updated 02/17/22 @ 08:25 by Hortensia Rizzo PA-C) Anxiety BMI 40.0-44.9, adult Bronchitis 01/2022-INHALER USE PRN-USED LAST WEEK Dyshidrotic eczema GERD (gastroesophageal reflux disease) controlled, stable per pt History of cellulitis R LEG -> 1 yr ago, resolved History of COVID-19 DX'D 01/29/22 PH [place], BODY ACHES, NASAL CONGESTION, COUGH, LOSS TASTE AND SMELL-RECOVERED AT HOME-RESOLVED HTN (hypertension) controlled, stable per pt Hypothyroidism IBS (irritable bowel syndrome) Type 2 diabetes mellitus pre-op A1c 6.6%, already on metformin Uterine fibroid Patient denies h/o stroke, seizures, heart attack, heart failure, blood clots or blood transfusions. Exercise / Class Metabolic Activity II 4-5 Yardwork/Stairs/Walk up hill (denies CP or SOB with 1 FOS, ambulates with cane ) Past Family History Family History Father Congestive heart failure Generalized anxiety disorder Prostate cancer Mother Osteoarthritis Sister Neurofibromatosis type II Generalized anxiety disorder Brother Obsessive compulsive disorder Anxiety disorder, unspecified Denies family history of Ovarian cancer Myocardial infarction Breast cancer Colorectal cancer Past Surgical History Surgical History History of ankle surgery LEFT ANKLE (HARDWARE INTACT) History of arthroplasty of left knee 07/09/19: SAB at L3-L4 1 attempt + PNB. No postop issues per anesthesia progress note. History of cholecystectomy History of colonoscopy History of tooth extraction Past Anesthesia History No Hx of Anesthesia Complications and No Family Hx of Anesthesia Complications History of PONV No Hx of PONV and Hx of Motion Sickness (if reading on winding road) Social History Smoking Status: Never smoker Do You Dip or Chew Tobacco: No Hx Alcohol Use: No Hx Substance Use: No substance use type: does not use Review of Systems Patient denies chest pain, shortness of breath, dyspnea on exertion, snoring, witnessed apneas, fever, chills, cough, wheezing, or palpitations. Physical Exam Vital Signs Vitals BP 118/77 P 78 TEMP 98.6 SP02 98% on RA RESP 17 Physical Full cervical extension range of motion without pain TMD 3.5 finger breadths Mallampati Score 2 Dentition: intact, several missing teeth,several crowns-none in front; denies chipped or loose teeth, implants or bridges Lungs: normal respiratory effort. Clear throughout to auscultation, no adventitious breath sounds Cardiac: regular rate and rhythm, no murmurs noted Carotid arteries: negative bruit bilat Lab Results Anesthesia Preop Results Results Anesthesia Widget: WBC 8.18 K/ul (4.8-10.8) 02/16/22 Hgb 13.0 g/dl (12.0-16.0) 02/16/22 Hct 39.5 % (34.1-44.9) 02/16/22 Plt 300 K/uL (130-400) 02/16/22 Na 137 mmol/L (136-145) 02/16/22 K 3.7 mmol/L (3.5-5.1) 02/16/22 Cl 99 mmol/L (98-107) 02/16/22 CO2 31 mmol/L (21-32) 02/16/22 BUN 17 mg/dl (6-23) 02/16/22 Creat 0.76 mg/dl (0.6-1.2) 02/16/22 Glucose Level 97 mg/dl (70-99(Fasting)) 02/16/22 PT 10.4 Seconds (9.0-12.0) 02/16/22 PTT 27.9 Seconds (21.0-31.0) 02/16/22 INR 1.0 (0.9-1.1) 02/16/22 HA1c 6.6 % (4.5-5.6) H 02/16/22 Urine Color Yellow 02/16/22 Urine Appearance Clear (Clear) 02/16/22 Urine pH 5.5 (4.5-7.5) 02/16/22 Urine Specific [place] 1.005 (1.000-1.030) 02/16/22 Urine Protein Negative (Negative) 02/16/22 Urine Glucose (UA) Negative (Negative) 02/16/22 Urine Ketones Negative (Negative) 02/16/22 Urine Blood Negative (Negative) 02/16/22 Urine Nitrite Negative (Negative) 02/16/22 Urine Bilirubin Negative (Negative) 02/16/22 Urine Urobilinogen Negative (Negative) 02/16/22 Urine Leukocyte Esterase Negative (Negative) 02/16/22 Blood Type O Positive 02/16/22 Antibody Screen NEGATIVE 02/16/22 Testing Electrocardiogram Date: 02/16/22 NSR, rate 82 bpm Chest X-Ray Date: 01/10/22 No acute findings
[~2022-03-29 05:14] MED LIST changes: -BUPIVACAINE 0.5 % 5 MG/1 ML PF 10ML VIAL ONE; -BUPIVACAINE/EPINEPHRINE 0.25% 1:200,000 30 ML VIAL ONE; -CEFAZOLIN 2000MG 2,000 MG/15 ML SYR IV SCH; -CeleBREX 200 MG CAP PO SCH; -LR 500ML BOLUS, THEN 15ML/HR IV SCH; -LR 60ML/HR IV SCH; -ROPIVACAINE 0.5% HCL/PF 150 MG, BUPIVACAINE 0.5% MPF 30 ML, EPINEPHrine 0.15 MG, Ketoro... INFIL SCH; +ROPIVACAINE 0.5% HCL/PF 150 MG, BUPIVACAINE 0.75% MPF 20 ML, EPINEPHrine 0.15 MG, Ketor... INFIL SCH; -SCOPOLAMINE 1.5 MG TDSY TD SCH; -TRANEXAMIC ACID 1,000 MG **IV Intra-op IV SCH; -TRANEXAMIC ACID 1,000 MG **IV Pre-op IV SCH
[2022-03-29] MEDS ORDERED: GABAPENTIN 900 MG DOSE PO SCH (06:00)
[2022-03-29] MEDS ORDERED: LR 500ML BOLUS, THEN 15ML/HR IV SCH (06:00)
[2022-03-29] MEDS ORDERED: oxyCODONE HCL 10 MG TABCR (OxyCONTIN) PO SCH (06:00)
[2022-03-29] MEDS ORDERED: ceFAZolin 2000MG 2,000 MG/15 ML SYR IV SCH (06:00)
[2022-03-29] MEDS ORDERED: LR 60ML/HR IV SCH (06:00)
[2022-03-29] MEDS ORDERED: ROPIVACAINE 0.5% HCL/PF 150 MG, BUPIVACAINE 0.75% MPF 20 ML, EPINEPHrine 0.15 MG, Ketor... INFIL SCH (06:00)
[2022-03-29] MEDS ORDERED: TRANEXAMIC ACID 1,000 MG **IV Intra-op IV SCH (06:00)
[2022-03-29] MEDS ORDERED: TRANEXAMIC ACID 1,000 MG **IV Pre-op IV SCH (06:00)
[2022-03-29] MEDS ORDERED: ACETAMINOPHEN 500 MG TAB PO SCH (06:00)
[2022-03-29] MEDS ORDERED: MIDAZOLAM HCL 1 MG/ML 2ML VIAL ONE (06:16)
[2022-03-29] MEDS ORDERED: fentaNYL citrate 100 MCG/2 ML VIAL ONE (06:16)
[2022-03-29] MEDS ORDERED: LIDOCAINE 2% MPF LOCAL 5 ML VIAL INFIL ONE (06:17)
[2022-03-29] MEDS ORDERED: PROPOFOL IV EMULSION 10 MG/ML 20 ML VIAL IV ONE ×6 (06:17→09:34)
[2022-03-29] MEDS ORDERED: BUPIVACAINE 0.5 % 5 MG/1 ML PF 10ML VIAL ONE (06:29)
[2022-03-29] MEDS ORDERED: ROPIVACAINE 0.5% 5 MG/ML 30 ML VIAL ONE (06:29)
--- NOTE | 2022-03-29 06:40 | History & Physical Bridge Note ---
Date of Service March 29, 2022 History & Physical Bridge Note I have examined the patient, reviewed the History & Physical and in the interval since the performance of the History & Physical I have noted the following changes of clinical significance: no changes noted Patient is aware of the risks, is asymptomatic, and tested negative for COVID- 19.
[2022-03-29] MEDS ORDERED: ATROPINE SULFATE 0.1 MG/ML 10ML SYR IV PRN (06:55)
[2022-03-29] MEDS ORDERED: KETOROLAC 30 MG/ML VIAL IV PRN (06:55)
[2022-03-29] MEDS ORDERED: ONDANSETRON INJ 2 MG/ML 2 ML VIAL IV PRN ×2 (06:55→11:29)
[2022-03-29] MEDS ORDERED: ePHEDrine sulfate 50 MG/ML AMP IV PRN (06:55)
[2022-03-29] MEDS ORDERED: ORTHO JOINT ANESTHETIC ONE (06:57)
[2022-03-29] MEDS ORDERED: ONDANSETRON INJ 2 MG/ML 2 ML VIAL ONE (07:38)
[2022-03-29] MEDS ORDERED: ePHEDrine sulfate 50 MG/ML AMP ONE (07:43)
--- NOTE | 2022-03-29 10:12 | Post Operative Brief Note ---
Immediate Post Op Note v1 Date of Surgery March 29, 2022 Pre & Post Diagnosis Operation Date: 03/29/22 07:00 Pre-Op Diagnosis: Right Knee Osteoarthritis Post-Op Diagnosis: Right Knee Osteoarthritis I identified the patient and participated in the time-out.: Yes Procedure Operation Date: 03/29/22 07:00 Actual Procedures p Right Total Knee Arthroplasty(Right) - Babra Ibanez MD Surgeon Babar Ibanez MD Associate Curator Mejia Wheeler DO & C Oni PA-C Estimated Blood Loss 120 Findings Consistent with Post-Op Diagnosis Fluids 1600 cc Specimens Right knee contents Drains Other (Prevena) Complications none
--- NOTE | 2022-03-29 10:12 | Operative Report ---
Post Operative Report Pre & Post Diagnosis Operation Date: 03/29/22 07:00 Pre-Op Diagnosis: Right Knee Osteoarthritis Post-Op Diagnosis: Right Knee Osteoarthritis I identified the patient and participated in the time-out.: Yes Procedure Operation Date: 03/29/22 07:00 Actual Procedures p Right Total Knee Arthroplasty, imageless computer assisted navigation (Right) - Babar Ibanez MD Surgeon Babar Ibanez MD Stitcher Hand DO & C Oni López PA-C Estimated Blood Loss 120 Findings See Below Examined Under Anesthesia: ROM -- There was 5 degrees to 120 degrees of flexion Ligamentous examination -- revealed stable Danie, posterior drawer, varus and valgus stress at 0 and 30 degrees. [place] Type IV changes of Tri-compartments, marginal osteophytes, and significant synovitis. Fluids 1600 cc Specimens Right knee contents Drains Prevena Anesthesia Type MAC Spinal Regional Complications none Indications This is a 56-year-old female who has clinical and radiographic findings consistent with osteoarthritis of the a right knee. I recommended that a right total knee replacement be performed. The patient understands the risks of surgery, which include but not limited to: bleeding, infection, re-operation, damage to nerves and arteries, continued knee pain, knee stiffness, DVT, and . The patient understands all of these instructions and explanations, all of his questions have been satisfactorily addressed and the patient has elected to proceed. Informed consent was signed. Description of Procedure IMPLANTS: 1. Femur: Triathlon #3 Right PS with distal pegs. 2. Tibia: Triathlon #2 [place]. 3. Insert: Triathlon #2 x 11 mm PS X3 poly. 4. Patella: Triathlon A29 x 9 mm X3 poly. 5.Palacos cement. Procedure: The patient was taken to the Operating Room and placed in the supine position after spinal and adductor canal nerve block was administered. My initials and a multidisciplinary time-out were used to identify the right leg as the correct operative limb. A tourniquet was placed high in the thigh. Prior to the incision, 2 grams of intravenous Ancef were given. The right leg was then prepped and draped in a standard sterile fashion. An Esmarch was used to exsanguinate the leg and the tourniquet was inflated to 250 mmHg. The planned mid-line 20 cm incision was created exposing the extensor mechanism. The medial parapatellar arthrotomy was made and the patella was everted. The patella was addressed first. It was prepared by reaming from 21 mm down to 12 mm. An A29 button was found to fit best. The peg holes were made in the standard fashion. The femur was addressed next and with imageless computer assisted navigation using OrthoAlign with 3 degrees of flexion and 0 degrees of valgus, removing 9 mm in the standard fashion for the distal cut.The cut was made and the 4-in-1 cutting block for a size 3 femur was placed. These cuts and the cuts to place the box were made in the standard fashion. The distal peg were created in the standard fashion. Our attention was then drawn to the tibia cut with using imageless computer assisted OrthoAlign, taking 4 mm from the medial low side. There was sufficient extension and flexion gap to fit a 11 mm spacer. A #2 Tibial baseplate fit well. A trial with a 11 mm spacer showed excellent stability in both flexion and extension, with good ligament balance, and thumbs free patellar tracking. Range of motion of 0-125 degrees. The tibial baseplate was prepped for the keel and stem. All the trial components were tested again, with good stability and thumbs free tracking of the patella. All components were removed. The tourniquet was deflated. Hemostasis was obtained. 90 ml of total knee cocktail were injected into the soft tissues and periosteum.After a 15 minute break, the limb was exsanguinated again and the tourniquet was re-inflated. All surfaces were copiously irrigated prior to placement of the components. The femoral component followed by Tibial baseplate were cemented in place and a 11mm trial placed. Next, the patellar button was placed using the same Palacos cement. Once the cement had cured, the range of motion and stability were unchanged. The 11 mm X3 poly was placed. Again the range of motion and stability were unchanged The extensor mechanism was closed with 1-0 and 0 Vicryl with the knee bent approximately 60 degrees in a standard fashion. The peritenon and deep fascia was closed with 2-0 Vicryl. The subcutaneous layer was closed with 3-0 Vicryl. The skin was closed with Zipline and shield. The limb was cleaned and dried. A Prevena dressing was placed in the standard fashion, and a foot to thigh Jaden bandage. The patient was then transferred to the Recovery Room in stable condition. The sponge and needle counts were correct. POST-OP INSTRUCTIONS: The patient will be WBAT. The patient will be admitted to the hospital.Labs will be obtained during the stay. DVT prophylaxis will included Xeralto or Eliquis (depending on insurance coverage) for 6 weeks, TEDs, and mechanical foot pumps. The dressing will be changed postop day #7 and covered with a Silverlon dressing. I attest to the content of the Intraoperative Record and any orders documented therein. Any exceptions are noted below.
[2022-03-29] MEDS: HYDROmorphone INJ 1 MG/ML SYRINGE IV PRN ×2 (10:33→10:38)
--- NOTE | 2022-03-29 10:41 | Operative Report ---
Post Operative Report Pre & Post Diagnosis Operation Date: 03/29/22 07:00 Pre-Op Diagnosis: Right Knee Osteoarthritis Post-Op Diagnosis: Right Knee Osteoarthritis I identified the patient and participated in the time-out.: Yes Procedure Operation Date: 03/29/22 07:00 Actual Procedures p Right Total Knee Arthroplasty(Right) - Babar Ibanez MD Surgeon Elvis Ibanez MD Refinery Operator Reforming Unit Mejia Wheeler DO & C Oni PA-C Estimated Blood Loss 120 Findings Consistent with Post-Op Diagnosis see operative report Specimens see operative report Drains none Complications none Disposition Accompanied Patient To Recovery: Yes Indications This 56 year old female presented to the office with complaints of persisting right knee pain. She had tried conservative care measures without improvement. She elected to proceed with surgical intervention after being educated about potential risks and outcomes. Preoperative imaging was obtained. Description of Procedure Patient was administered a spinal anesthetic and then taken to the operating room where she was given sedation. She was prepped and draped in the usual sterile fashion. Please see Dr. Ibanez's operative report for specifics of the procedure. I was present for the entire case from initial patient positioning through final wound closure. Assistance was provided in tissue retraction, hemostasis, trial implant placement, final implant placement, and final wound closure. Patient was taken to the recovery room in satisfactory condition. I attest to the content of the Intraoperative Record and any orders documented therein. Any exceptions are noted below.
--- NOTE | 2022-03-29 11:17 | Anesthesiology Progress Note ---
Date of Service March 29, 2022 Anesthesia Post Procedure Vital Signs Vital Signs: Temp Pulse Resp BP Pulse Ox O2 Del Method O2 Flow Rate 03/29/22 11:05 36.6 C 88 17 102/74 99 Oxymask 2 03/29/22 10:55 92 H 17 137/79 99 Oxymask 2 03/29/22 10:45 86 17 139/77 93 Oxymask 2 03/29/22 10:35 88 17 114/81 98 Oxymask 5 03/29/22 10:25 36.4 C L 94 H 18 123/66 97 Oxymask 5 03/29/22 05:54 36.9 C 79 20 133/72 98 Room Air Pain Intensity Right Knee: Pain Intensity: 3 Transfer of Care Handoff Completed per policy Notes Mental Status: alert / awake / arousable Patient Amnestic to Procedure: Yes Nausea / Vomiting: adequately controlled Pain: adequately controlled Airway Patency, RR, SpO2: stable & adequate BP & HR: stable & adequate Hydration State: stable & adequate Neuraxial Anesthesia: was administered and sensory block is resolving Anesthetic Complications: no major complications apparent
[2022-03-29] MEDS ORDERED: HYDROmorphone INJ 0.5 MG/0.5 ML SYR IV PRN (11:29)
[2022-03-29] MEDS ORDERED: ALBUTEROL HFA 8 GM INHALER INH PRN (11:29)
[2022-03-29] MEDS ORDERED: ALUMINUM/MAGNESIUM SUSP 30 ML UDC PO PRN (11:29)
[2022-03-29] MEDS ORDERED: bisacodyL 10 MG SUPP PR PRN (11:29)
[2022-03-29] MEDS ORDERED: METOCLOPRAMIDE HCL INJ 5 MG/ML 2 ML VIAL IV PRN (11:29)
[2022-03-29] MEDS ORDERED: NALOXONE HCL 0.4 MG/1 ML VIAL/CARP IV PRN (11:29)
[2022-03-29] MEDS ORDERED: MAGNESIUM HYDROXIDE SUSP 30 ML UDC PO PRN (11:29)
[2022-03-29] MEDS ORDERED: oxyCODONE HCL IR 5 MG TAB (IMMEDIATE RELEASE) PO PRN (11:29)
[2022-03-29] MEDS ORDERED: PHARMACY GLYCEMIC MGMT CONSULT PRN (11:29)
--- NOTE | 2022-03-29 11:51 | XRay Report ---
XR knee RT 1 or 2V routine CLINICAL HISTORY: Surgical Post Op TECHNIQUE: 2 views of the right knee were obtained. Comparison: Comparison is made to leg length study 11/23/2021 FINDINGS: Patient is status post total knee arthroplasty with expected postsurgical changes including soft tiss ue swelling and subcutaneous emphysema. No periarticular lucency or hardware fracture is seen. IMPRESSION: Expected postoperative appearance status post placement of total knee arthroplasty. ACT 112: Negative or not required by law. Electronically signed by: Kaushal Calderón M.D. 03/29/2022 11:50 AM
[2022-03-29] MEDS ORDERED: GLUCOSE 10 TAB/TUBE PO PRN (12:00)
[2022-03-29] MEDS ORDERED: CARBOHYDRATES FOR HYPOGLYCEMIA PO PRN (12:00)
[2022-03-29] MEDS ORDERED: GLUCOSE 40% GEL 15 GM TUBE PO PRN (12:00)
[2022-03-29] MEDS ORDERED: GLUCAGON FOR INJ 1 MG VIAL IM PRN (12:00)
[2022-03-29] MEDS ORDERED: DEXTROSE 50% 50 ML SYRINGE IV PRN (12:00)
--- NOTE | 2022-03-29 12:07 | Hospitalist Consultation ---
Date of Consultation March 29, 2022 Assessment & Plan (1) Osteoarthritis of right knee: S/p Right Total Knee Arthroplasty(Right) with Babar Ibanez MD on 03/29/2022. No complications in operative note. EBL was 120 mL. - At risk for expected acute blood loss anemia; can give PRBCs or IV Venofer as needed - Post-op care per primary team - DVT ppx: apixaban 2.5 mg PO BID per primary team (2) Hypertension: BP is 115/70 after surgery. - Hold home Maxzide as BP is lower from anesthesia, pain meds, likely some volume loss during surgery. - Can resume on discharge. (3) Hypothyroidism: - Continue home levothyroxine (4) Anxiety: - Continue home SSRI (5) Prediabetes: Glycemic consult in place. - Management per their team Given medical stability, Hospital Medicine team will sign off. Will check labs in AM, but feel free to discharge once surgerically ready. Please re-consult with any questions or concerns. Thank you for letting us assist in the care of this patient! History of Present Illness Attending Physician: Babar Ibanez MD History of Present Illness 56yo F w/ hx of HTN, DM who presents as routine post-op consult after Right Total Knee Arthroplasty(Right) with Babar Ibanez MD on 03/29/2022. No complications in operative note. EBL was 120 mL. Patient still with regional block in place and not in pain. Can feel toes and denies any other issues. Allergies Allergy/AdvReac Type Severity Reaction Status Date / Time cephalexin Allergy Intermediate CHILLS/FEVE Verified 03/29/22 05:53 R/DIARRHEA shellfish derived Allergy Intermediate HANDS SWELL Verified 03/29/22 05:53 sulfamethoxazole AdvReac Mild Insomnia Verified 03/29/22 05:49 [From Bactrim] trimethoprim [From Bactrim] AdvReac Mild Insomnia Verified 03/29/22 05:49 Home Medications Medication Instructions Recorded Confirmed Type Bifidobacterium infantis 4 mg 4 mg PO QPM 07/26/18 03/29/22 History capsule (Align) cetirizine 10 mg tablet (Zyrtec) 10 mg PO QPM 07/26/18 03/29/22 History celecoxib 200 mg capsule See Rx Instructions .Route 04/27/21 03/29/22 Rx .COMPLEX #90 caps metaxalone 800 mg tablet (Skelaxin) 400 - 800 mg PO TID PRN muscle 12/17/21 03/29/22 Rx pain #60 tabs albuterol sulfate 90 mcg/actuation 2 puff inhalation Q6H PRN 01/11/22 03/29/22 Rx aerosol inhaler shortness of breath or wheezing #18 grams acetaminophen 500 mg tablet 1,000 mg PO Q8 PRN Pain 02/02/22 03/29/22 History multivitamin 1 tab PO QPM 02/02/22 03/29/22 History pantoprazole 40 mg tablet,delayed See Rx Instructions .Route 02/14/22 03/29/22 Rx release .COMPLEX #90 tabs metformin 500 mg tablet,extended 1,000 mg PO BID #360 tabs 02/17/22 03/29/22 Rx release 24 hr levothyroxine 100 mcg tablet 100 mcg PO QAM #90 tabs 03/02/22 03/29/22 Rx escitalopram oxalate 10 mg tablet See Rx Instructions .Route .COMPLEX 03/29/22 03/29/22 History (Lexapro) triamterene 37.5 1 tab PO QPM 03/29/22 03/29/22 History mg-hydrochlorothiazide 25 mg tablet (Maxzide-25mg) Patient History Medical History Anxiety BMI 40.0-44.9, adult Bronchitis 01/2022-INHALER USE PRN-USED LAST WEEK Dyshidrotic eczema GERD (gastroesophageal reflux disease) controlled, stable per pt History of cellulitis R LEG -> 1 yr ago, resolved History of COVID-19 DX'D 01/29/22 PH [place], BODY ACHES, NASAL CONGESTION, COUGH, LOSS TASTE AND SMELL-RECOVERED AT HOME-RESOLVED HTN (hypertension) controlled, stable per pt Hypothyroidism IBS (irritable bowel syndrome) Type 2 diabetes mellitus pre-op A1c 6.6%, already on metformin Uterine fibroid Surgical History History of ankle surgery LEFT ANKLE (HARDWARE INTACT) History of arthroplasty of left knee 07/09/19: SAB at L3-L4 1 attempt + PNB. No postop issues per anesthesia progress note. History of cholecystectomy History of colonoscopy History of tooth extraction Family History Father Congestive heart failure Generalized anxiety disorder Prostate cancer Mother Osteoarthritis Sister Neurofibromatosis type II Generalized anxiety disorder Brother Obsessive compulsive disorder Anxiety disorder, unspecified Denies family history of Ovarian cancer Myocardial infarction Breast cancer Colorectal cancer Social History Smoking Status: Never smoker Second Hand Exposure: No; Do You Dip or Chew Tobacco: No; Hx Alcohol Use: No Hx Substance Use: No Preferred Language: Chinese Communication Ability: Effective Visual Impairment: No Limitations Hearing Ability: Normal Hiv Nurse Required: No Beliefs That Will Affect Care: None marital status: Current Living Situation: Family current occupational status: employed Other Information That Helps Us Care for You: No Feels Safe at Home: Yes Safety Concerns: Feels Safe At This Time Diet Comment: regular caffeine: Yes during the past year weight has: decreased > 10 lbs Dental Care, Regularly: Yes Physical Activity Frequency: Daily Seatbelt Use: always Sunscreen Use: Yes Assistive Devices: Walker Assistive Devices Comment: WILL WEAR GLASSES DOS Review of Systems Review of Systems: All systems reviewed & are unremarkable except as noted in HPI & below Physical Exam Constitutional: WD/WN, vitals as above Eyes: EOM intact bilaterally; no conjunctival abnormality ENMT: external ear and nose normal, oropharynx normal Neck: trachea midline, no thyromegaly normal visual inspection Respiratory: normal respiratory effort, lungs clear to auscultation no respiratory distress Cardiovascular: RRR, no murmur, no edema Gastrointestinal (Abdomen): Inspection/Auscultation: abdomen normal to inspection; abdomen not distended Musculoskeletal: Right knee bandaged with ice. Right toes are NVI. Skin: no rashes, warm and dry Neurologic: moves all extremities and awake Psychiatric: Orientation: alert, oriented to person and cooperative Results & Data Results & Data ([facility]) Vital Signs (Past 12 Hours) Vital Signs Temp Pulse Resp BP Pulse Ox O2 Del Method O2 Flow Rate 03/29/22 11:34 36.7 C 93 H 137/74 95 Room Air 03/29/22 11:05 36.6 C 88 17 102/74 99 Oxymask 2 03/29/22 10:55 92 H 17 137/79 99 Oxymask 2 03/29/22 10:45 86 17 139/77 93 Oxymask 2 03/29/22 10:35 88 17 114/81 98 Oxymask 5 03/29/22 10:25 36.4 C L 94 H 18 123/66 97 Oxymask 5 03/29/22 05:54 36.9 C 79 20 133/72 98 Room Air PG Care Time/CCT Total # of Minutes Spent Total Time Spent with Patient: Total time spent is greater than 50% in coordination of care (as documented) at patient's floor/unit and/or counseling patient: Coding Level of Care Code 82878 Office/OBS Consult Lvl 2 Diagnoses Osteoarthritis of right knee M17.11 Hypertension I10 Hypothyroidism E03.9 Anxiety F41.9 Prediabetes R73.03
[2022-03-29] MEDS: SODIUM CHLORIDE 0.9% 1000ML 1,000 ML IV SCH ×2 (12:09→22:34)
[2022-03-29] MEDS: INSULIN ASPART PER UNIT SC SCH ×3 (13:21→22:18)
--- NOTE | 2022-03-29 13:54 | Pharmacy Report ---
Pharmacy Glycemic Short Note 2 - Date of Service March 29, 2022 - Glycemic Short BSG Results (Last 24 hours): 03/29/22 03/29/22 03/29/22 05:55 10:42 12:26 POC Glucose 124 H 129 H 113 H OUTPATIENT ANTIDIABETIC REGIMEN: * metformin 1 gm PO BID * HbA1C = 6.6% (02/16/22) ASSESSMENT: * Ms Maldonado is a 56 y/o F with a PMH of T2DM on metformin who presents for R Knee arthroplasty. * Patient's preop BSG was 124 mg/dL. Post-op patient is 113 mg/dL. * Patient received dexamethasone via ortho intraoperatively. * Novolog weight-based stress of 2. Resume metformin tomorrow if kidney function okay. * Hold Lantus since BSGs < 140 mg/dL. PLAN FOR INPATIENT GLYCEMIC CONTROL: * Hold outpatient oral diabetes medications * Basal insulin * HOLD * Bolus insulin * NovoLog per scale ACHS or Q6hrs while NPO * Goal Range: Low 110 mg/dL - High 140 mg/dL * Correction Factor: 25 mg/dL/unit * Nutritional / Prandial insulin per carb ratio of 1 unit per 7 grams CHO consumed
[2022-03-29] MEDS: KETOROLAC 30 MG/ML VIAL IV SCH ×2 (14:12→18:03)
[2022-03-29] MEDS: ACETAMINOPHEN 500 MG TAB PO SCH ×2 (14:13→21:14)
--- NOTE | 2022-03-29 14:43 | Orthopedic Progress Note ---
Date of Service March 29, 2022 Assessment & Plan (1) Osteoarthritis of right knee: Plan: POD #0 s/p Right TKA, doing as well as expected. Resume diet. WBAT with walker. Complete 24 hr Ancef. OOB to chair. Continue pain control. Continue Prevena Check labs tomorrow. DVT prophylaxis: TEDs 3 weeks, foot pumps while in hospital, Eliquis for 6 weeks. PT/OT. D/C planning Present on Admission?: Yes Admission and Anticipated Discharge Date Admission Date: March 29, 2022 Subjective Feeling alright Review of Systems Review of Systems: All systems reviewed & are unremarkable except as noted in HPI & below Physical Exam Physical Exam: RLE: BCR < 2 sec. Sensation to light touch intact distally. Wiggling ankle and toes. Calf soft and non-tender. Dressing is clean, dry, intact. Results & Data ([facility]) Vital Signs (Past 12 Hours) Vital Signs Temp Pulse Resp BP Pulse Ox O2 Del Method O2 Flow Rate 03/29/22 12:50 36.5 C 93 H 16 121/73 93 03/29/22 12:10 36.6 C 90 16 115/69 91 03/29/22 11:34 36.7 C 93 H 137/74 95 Room Air 03/29/22 11:05 36.6 C 88 17 102/74 99 Oxymask 2 03/29/22 10:55 92 H 17 137/79 99 Oxymask 2 03/29/22 10:45 86 17 139/77 93 Oxymask 2 03/29/22 10:35 88 17 114/81 98 Oxymask 5 03/29/22 10:25 36.4 C L 94 H 18 123/66 97 Oxymask 5 03/29/22 05:54 36.9 C 79 20 133/72 98 Room Air Diagnostic Findings Laboratory Results POC Glucose 113 mg/dl (70-99) H 03/29/22 12:26 POC Ur Test NEG (NEG) 03/29/22 05:30 SARS-CoV-2, RNA, NAAT NEGATIVE (NEGATIVE) 03/29/22 05:34 Impressions Knee X-Ray 03/29/22 10:37 XR knee RT 1 or 2V routine CLINICAL HISTORY: Surgical Post Op TECHNIQUE: 2 views of the right knee were obtained. Comparison: Comparison is made to leg length study 11/23/2021 FINDINGS: Patient is status post total knee arthroplasty with expected postsurgical changes including soft tissue swelling and subcutaneous emphysema. No periarticular lucency or hardware fracture is seen. IMPRESSION: Expected postoperative appearance status post placement of total knee arthroplasty. ACT 112: Negative or not required by law. Electronically signed by: Kaushal Calderón M.D. 03/29/2022 11:50 AM
[2022-03-29] MEDS: ceFAZolin 2000MG 2,000 MG/15 ML SYR IV SCH (18:02)
[2022-03-29] MEDS: ASCORBIC ACID 500 MG TAB PO SCH (18:03)
[2022-03-29] MEDS: FERROUS GLUCONATE 324 MG TAB PO SCH (18:03)
[2022-03-29] MEDS: DOCUSATE SODIUM 100 MG CAP PO SCH (20:22)
[2022-03-29] MEDS ORDERED: SENNA 8.6 MG TAB PO SCH (21:00)
[2022-03-29] MEDS ORDERED: ESCITALOPRAM OXALATE 10 MG TAB PO SCH (21:00)
[2022-03-29] MEDS ORDERED: SACCHAROMYCES BOULARDII 250 MG CAP PO SCH (21:00)
[2022-03-29] MEDS ORDERED: TRIAMTERENE/HCTZ 37.5/25MG TAB PO SCH (21:00)
[2022-03-29] MEDS ORDERED: CETIRIZINE HCL 10 MG TABLET PO SCH (21:00)
[2022-03-30] MEDS: KETOROLAC 30 MG/ML VIAL IV SCH ×2 (00:35→05:59)
[2022-03-30] MEDS: ceFAZolin 2000MG 2,000 MG/15 ML SYR IV SCH (00:35)
[2022-03-30] MEDS: ACETAMINOPHEN 500 MG TAB PO SCH ×2 (05:59→13:50)
[2022-03-30] MEDS ORDERED: LEVOTHYROXINE SODIUM 100 MCG TABLET PO SCH (06:30)
[2022-03-30 08:17] LABS: Hematocrit (blood only) 35.4 % (34.1-44.9); Hemoglobin 11.4 g/dl (12.0-16.0); Mean Corpuscular Hemoglobin 27.7 pg (25.0-34.0); Mean Corpuscular Hgb Conc 32.2 g/dL (32.0-36.0); Mean Corpuscular Volume 85.9 fL (80.0-100.0); Mean Platelet Volume 11.6 fL (9.4-12.3); Platelet Count 227 K/uL (130-400); RDW Coefficient of Variation 14.4 % (11.5-14.5); RDW Standard Deviation 45.6 fL (36.4-46.3); Red Blood Count 4.12 M/uL (3.93-5.22); White Blood Count 9.49 K/ul (4.8-10.8)
[2022-03-30] MEDS: DOCUSATE SODIUM 100 MG CAP PO SCH (08:48)
[2022-03-30] MEDS: FERROUS GLUCONATE 324 MG TAB PO SCH (08:48)
[2022-03-30] MEDS: ASCORBIC ACID 500 MG TAB PO SCH (08:48)
[2022-03-30 08:50] LABS: BUN Creatinine Ratio 23.3 (10-20); Calcium 8.5 mg/dl (8.5-10.1); Creatinine Clr Calc Pharmacy 111.7 ml/min; Est GFR (African American) 108.2 ml/min; Est GFR (Non-African American) 93.4 ml/min; Potassium 3.4 mmol/L (3.5-5.1)
[2022-03-30] MEDS: INSULIN ASPART PER UNIT SC SCH ×2 (08:56→13:22)
[2022-03-30] MEDS ORDERED: MULTIVITAMIN TAB PO SCH (09:00)
[2022-03-30] MEDS ORDERED: APIXABAN 2.5 MG TAB PO SCH (09:00)
[2022-03-30] MEDS ORDERED: POTASSIUM CHLORIDE CRTAB 20 MEQ TABCR PO STA (09:02)
--- NOTE | 2022-03-30 09:48 | Orthopedic Progress Note ---
Date of Service March 30, 2022 Assessment & Plan (1) Osteoarthritis of right knee: Plan: POD #1 s/p Right TKA, doing as well as expected. Regular diet as ordered WBAT with walker. OOB to chair. Continue pain control. Continue Prevena DVT prophylaxis: TEDs 3 weeks, foot pumps while in hospital, Eliquis for 6 weeks. PT/OT. D/C planning. Plan for discharge to home with home health later this afternoon. Admission and Anticipated Discharge Date Admission Date: March 29, 2022 Supervising Physician Co-Signing Physician Notes I, Dr. Ibanez, saw and examined the patient and discussed the management with my PA. I reviewed my PAs note and agree with the documented findings and the plan of care I developed. Subjective Patient sitting in her bedside chair today. She is doing well. No complaints significant pain in her right knee. She tolerated a regular diet this morning. Denies any nausea, vomiting. Vital signs are stable. Pain is well controlled with oral pain medication. Denies any chest pain or shortness of breath. Physical Exam Physical Exam: RLE: BCR < 2 sec. Sensation to light touch intact distally. Wiggling ankle and toes. Calf soft and non-tender. Dressing is clean, dry, intact. Musculoskeletal: Right knee Nessa in place. Right lower leg is mildly edematous. Calf is supple and nontender with palpation. Mild edema into her right foot. Dorsalis pedis and posterior tibial pulses are 1+. Distal sensation is normal. Full range of motion with ankle dorsiflexion, plantarflexion, inversion and eversion. Strength is 5/5. She is able to actively lift her leg today. Results & Data ([facility]) Vital Signs (Past 12 Hours) Vital Signs Temp Pulse Resp BP Pulse Ox O2 Del Method 03/30/22 07:22 36.7 C 75 18 114/75 95 Room Air 03/30/22 03:24 36.9 C 80 18 97/60 L 95 Room Air 03/29/22 22:31 36.8 C 83 18 125/71 94 Room Air Laboratory Results 03/30/22 03/30/22 03/30/22 Range/Units 08:15 07:31 07:31 WBC (4.8-10.8) K/ul RBC (3.93-5.22) M/uL Hgb (12.0-16.0) g/dl Hct (34.1-44.9) % MCV (80.0-100.0) fL MCH (25.0-34.0) pg MCHC (32.0-36.0) g/dL RDW Std Deviation (36.4-46.3) fL RDW Coeff of Latha (11.5-14.5) % Plt Count (130-400) K/uL MPV (9.4-12.3) fL Sodium 139 (136-145) mmol/L Potassium 3.4 L (3.5-5.1) mmol/L Chloride 101 (98-107) mmol/L Carbon Dioxide 33 H (21-32) mmol/L Anion Gap 5 (3-11) BUN 17 (6-23) mg/dl Creatinine 0.73 (0.6-1.2) mg/dl Est Cr Clr Drug Dosing 111.7 ml/min Est GFR ( Amer) 108.2 ml/min Est GFR (Non-Af Amer) 93.4 ml/min BUN/Creatinine Ratio 23.3 H (10-20) Glucose 119 H (70-99(Fasting)) mg/dl POC Glucose 127 H (70-99) mg/dl Calcium 8.5 (8.5-10.1) mg/dl Magnesium 1.9 (1.7-2.4) mg/dl POC Ur Test (NEG) 03/30/22 03/29/22 03/29/22 Range/Units 07:31 21:12 17:12 WBC 9.49 (4.8-10.8) K/ul RBC 4.12 (3.93-5.22) M/uL Hgb 11.4 L (12.0-16.0) g/dl Hct 35.4 (34.1-44.9) % MCV 85.9 (80.0-100.0) fL MCH 27.7 (25.0-34.0) pg MCHC 32.2 (32.0-36.0) g/dL RDW Std Deviation 45.6 (36.4-46.3) fL RDW Coeff of Latha 14.4 (11.5-14.5) % Plt Count 227 (130-400) K/uL MPV 11.6 (9.4-12.3) fL Sodium (136-145) mmol/L Potassium (3.5-5.1) mmol/L Chloride (98-107) mmol/L Carbon Dioxide (21-32) mmol/L Anion Gap (3-11) BUN (6-23) mg/dl Creatinine (0.6-1.2) mg/dl Est Cr Clr Drug Dosing ml/min Est GFR ( Amer) ml/min Est GFR (Non-Af Amer) ml/min BUN/Creatinine Ratio (10-20) Glucose (70-99(Fasting)) mg/dl POC Glucose 121 H 124 H (70-99) mg/dl Calcium (8.5-10.1) mg/dl Magnesium (1.7-2.4) mg/dl POC Ur Test (NEG) 03/29/22 03/29/22 03/29/22 Range/Units 12:26 10:42 05:30 WBC (4.8-10.8) K/ul RBC (3.93-5.22) M/uL Hgb (12.0-16.0) g/dl Hct (34.1-44.9) % MCV (80.0-100.0) fL MCH (25.0-34.0) pg MCHC (32.0-36.0) g/dL RDW Std Deviation (36.4-46.3) fL RDW Coeff of Latha (11.5-14.5) % Plt Count (130-400) K/uL MPV (9.4-12.3) fL Sodium (136-145) mmol/L Potassium (3.5-5.1) mmol/L Chloride (98-107) mmol/L Carbon Dioxide (21-32) mmol/L Anion Gap (3-11) BUN (6-23) mg/dl Creatinine (0.6-1.2) mg/dl Est Cr Clr Drug Dosing ml/min Est GFR ( Amer) ml/min Est GFR (Non-Af Amer) ml/min BUN/Creatinine Ratio (10-20) Glucose (70-99(Fasting)) mg/dl POC Glucose 113 H 129 H (70-99) mg/dl Calcium (8.5-10.1) mg/dl Magnesium (1.7-2.4) mg/dl POC Ur Test NEG (NEG)
--- NOTE | 2022-03-30 10:02 | Discharge Summary ---
Date of Service March 30, 2022 Discharge Data Consultations 03/29/22 05:00 Consult Hospitalist Routine Procedures Performed Operation Date: 03/29/22 07:00 Actual Procedures p Right Total Knee Arthroplasty(Right) - Babar Ibanez MD Hospital Course (1) Osteoarthritis of right knee: Patient was placed in observation at [facility] after undergoing an elective right total knee arthroplasty by Dr. Ashley Ibanez. Surgery was performed in March 29, 2022. Surgery was performed with spinal anesthesia and a peripheral nerve block. She tolerated the procedure well without any intraoperative complications. A Prevena wound VAC was placed on her dressing over her Zipline closure. This will remain on for 6 to 7 days after surgery. She was given 2 g of IV Ancef for surgical prophylaxis which was continued for 24 hours after her procedure. In the recovery room she had x-rays of her right knee which showed a stable prosthesis of her right knee acceptable alignment. Postoperatively, she was allowed out of bed, weight-bear as tolerated with the assistance of a walker. She was given IV Dilaudid, Tylenol, oxycodone for postoperative pain control. Her pain was well controlled with oral pain medications. Her vital signs remained stable during her inpatient stay. She tolerated a regular diet. Her home medications were resumed as appropriate. Hospitalist consult was placed for postoperative medical management. They signed off on March 29, 2022 and rechecked her labs the morning of March 30, 2022. Her labs were acceptable postoperatively. She was placed on SCDs, early mobilization and Eliquis 2.5 mg twice daily for 6 weeks after surgery for DVT prophylaxis. She was seen and evaluated by physical therapy and Occupational Therapy. She did well out of bed, with her walker. She was deemed safe for discharge to her home and was discharged to her home in stable condition on March 30, 2022. Case management was also involved for disposition needs. Discharge instructions were reviewed. All questions were answered. She had appropriate follow-up scheduled. She understands and agrees to the plan.
[2022-03-30] MEDS ORDERED: metFORMIN HCL ER 500 MG TABCR PO SCH (17:00)
== END 2022-03-30 15:30 | disposition home health service (06) ==
LOC: 3W 05:14 → ASU 05:14